=== PATIENT | female | born 1995 | race Hispanic/Latino ===

== ENCOUNTER 2016-11-19 13:25 | Inpatient (IN) | payer OTHER ==
[~2016-11-19] VITALS: Ht 157.5 cm; Wt 86.2 kg
[~2016-11-19 13:25] MED LIST: DOXY1TAB3 PO; OMEP20CA11 PO
[2016-11-19] MEDS ORDERED: Sodium Chloride LOK Flush 10 mL Syringe IVFLUSH PRN (14:05)
[2016-11-19] MEDS ORDERED: fentaNYL-PF 50 mCg/mL 2 mL Inj IVPUSH PRN (14:05)
[2016-11-19] MEDS ORDERED: Methylergonovine 0.2 mg/mL Inj IM PRN ×2 (14:05→22:15)
[2016-11-19] MEDS ORDERED: Hemorrhage Kit, Post Partum XX ONE ×2 (14:05→22:15)
[2016-11-19] MEDS ORDERED: Oxytocin 30 Units/500 mL LR 30 UNITS in IV Premix 1 EACH IV PRN ×2 (14:05→22:15)
[2016-11-19] MEDS ORDERED: Carboprost 250 mCg/mL Inj IM PRN ×2 (14:05→22:15)
[2016-11-19] MEDS ORDERED: Penicillin G K Inj 5,000,000 UNITS in Dextrose 5% Minibag Plus 100 ML IV ONE (14:05)
[2016-11-19] MEDS ORDERED: Oxytocin 10 Unit/mL Inj IM PRN ×2 (14:05→22:15)
[2016-11-19 14:43] LABS: Mean Corpuscular Hemoglobin 27.4 pg (27.0-35.0)
[2016-11-19] MEDS: Lactated Ringer's 1,000 ML IV PRN ×2 (15:16→16:09)
--- NOTE | 2016-11-19 15:50 | PCM.HPANE ---
Patient Data Date of Service: Nov 19, 2016 Surgeon Admitting Provider:Tabitha Martinez MD Attending Provider:Tabitha Martinez MD Primary Care Physician:Lesly Kaiser MD Other Provider:Cassy Samsingham Anesthesia Reason for Visit Term Early Labor TERM EARLY LABOR Ht/WT & BMI Body Mass Index Allergies Coded Allergies: No Known Allergies (Verified Allergy, Unknown, 10/07/15) Diabetes History Hx Diabetes?: No Medications Active Scripts Doxylamine/Pyridoxine 10-10 mg (Diclegis DR 10-10 mg)1 Each Tablet.dr1 Tablet PO QID PRN For Nausea #40 TABLET Prov:Ruddy Barker MD 03/30/16 Omeprazole 20 Mg Capsule.dr20 Mg PO BID #30 CAPSULE Ref 0 Prov:Lisa Tinsley DO 10/07/15 History Cardiovascular History: Denies:: Congestive Heart Failure Hypertension Respiratory History: Denies:: Tuberculosis Hx Surgeries?: Yes (C SECTION) Hx Diabetes: No Hx Alcohol Use: NoHx Substance Use: No Smoking Status: Never Smoker Have You Smoked inLast 12 mo: No Stop/Bang Risk Assessment Category Category 1A: Patient has history of documented sleep apnea, and HAS NOT received any narcotic, sedative or anesthesia administration during this stay. Category 1B: Patient has history of documented sleep apnea, and HAS received any narcotic , sedative or anesthesia administration during this stay Category 2: Patient has SUSPECTED Obstructive Sleep Apnea, and HAS received any narcotic , sedative or anesthesia administration during this stay. Category 3: Patient has SUSPECTED Obstructive Sleep Apnea and HAS NOT received narcotic, sedative or anesthesia administration during this stay. Category 4: Outpatient in Procedural Areas with known sleep apnea or who screen positive for High Risk via the STOP/BANG questionnaire. Exam Exam General Appearance: Alert, Oriented X3, Cooperative, Mild Distress HEENT/AIRWAY: MP 2, Neck Movement, Mouth Opening Lungs: Clear to Auscultation, Normal Air Movement Heart: Exam Unremarkable, Normal S1, Normal S2 Additional Information gravid abd Meds/Labs/Diagnostics Admission Meds Current Medications Penicillin G Potassium/ Dextrose/Water (Pfizerpen Inj/ D5W Minibag Plus) 100 ml @ 240 mls/hr ONCE ONCE IV Last administered on 11/19/16t 15:17; Start at 14:05; Stop 11/19/16 at 14:29; Status DC Labs Test 11/19/16 14:35 White Blood Count 10.7th/mm3 (3.8-10.1) Red Blood Count 4.01mil/mm3 (3.90-5.20) Hemoglobin 11.0g/dL (12.0-15.6) Hematocrit 33.7% (35.0-46.0) Mean Corpuscular Volume 84.0fL (81-100) Mean Corpuscular Hemoglobin 27.4pg (27.0-35.0) Mean Corpuscular Hemoglobin Concent 32.6% (32.0-37.0) Red Cell Distribution Width 14.1% (12.3-15.4) Platelet Count 200bil/L (150-400) Plan Impression Patient chart reviewed, patient interviewed and anesthestic plan with risks, benefits, and alternatives discussed, and informed consent obtained. ASA Physical Status: ASA2 Mod Systemic Disease Anesthetic Plan: Epidural Bene/Risks/Altern/Consents: Yes HP Complete Prior to Induction: Yes Irvin Davis DO Nov 19, 2016 15:50
[2016-11-19] MEDS ORDERED: fentaNYL 2 mCg/mL-Bupivicaine 0.125% 100 mL Premix EPIDURAL ONE (15:52)
--- NOTE | 2016-11-19 15:55 | PCM.HPOB ---
Subjective Date of Service: Nov 19, 2016 Referring Provider: Admitting Physician: Tabitha Martinez MD Primary Care Physician: Lesly Kaiser MD Attending Physician: Tabitha Martinez MD Chief Complaint Term labor, contractions, History of Present History of Present Illness Patient is a 21-year-old woman 001 presents to the [facility] at 38 weeks gestation with signs of labor, she was evaluated and found to be 6 cm dilated 90% effaced and station of -2. Her membranes had not ruptured. As a history of genital herpes, previously treated with valacyclovir, recently treated with acyclovir, otherwise history is unremarkable. O+ blood type Antibody screen was negative Varicella and rubella immune RPR and HIV nonreactive Hepatitis B surface antigen negative, hepatitis C negative GBS positive Chlamydia and gonorrhea negative Gestational diabetes screen negative Past Medical History Obstetrical History: Previous 42.2% calculated success. Gynecologic History: None. Medical History: None Surgical History: 1 previous at 16yo Social History: Lives with family Hx Tobacco Use: No Smoking Status: Never Smoker Hx Alcohol Use: No Hx Substance Use: No Past Family History Family History Uncle and Aunt have had CVAs MGM - Unknown type of cancer. Living Arrangement: with Family Review of Systems Constitutional: Y: Pain, Sweats, Weakness, Dizziness Eyes: Denies: Blurred Vision Cardiovascular: Denies: Chest Pain, Edema Respiratory: Denies: Cough Gastrointestinal: Reports: Nausea, Denies: Abdominal Pain Genitourinary: Denies: Dysuria Musculoskeletal: Denies: Redness, Swelling Skin/Breasts: Reports: Discharge Skin: Denies: Rash Neurological: Reports: Numbness (in her legs when she has contractions) Psychologic: Denies: Agitation Medications Home medications Acyclovir vitamin Allergy Coded Allergies: No Known Allergies (Verified Allergy, Unknown, 10/07/15) Exam Vital Signs 115/66 103 bpm 18 respirations per minute 98.8F 10 out of 10 pain Exam 130 bpm Baseline Moderate variability 15 x 15 accelerations no decelerations Type I strip Objective Sitting at bedside breathing through contractions Constitutional: Well-developed, Well-nourished, Normal habitus HEENT: Atraumatic, PERRLA, EOMI, Scleral Anicteric Lungs: Clear to Auscultation, Normal Air Movement Heart: Regular Rate/Rhythm, Normal S1, Normal S2, No Murmurs/Rubs/Gallops Abdomen: Gravid, No tenderness Lymphatic: Normal: Axilla Palpation of Nodes, Neck Palpation of Nodes Extremities: Pulses Palpable x4, No Edema Neuro: Grossly Neurologically Intact Labs/Diagnostics Labs Laboratory Tests 72 Hours Test 11/19/16 14:35 White Blood Count 10.7th/mm3 (3.8-10.1) Red Blood Count 4.01mil/mm3 (3.90-5.20) Hemoglobin 11.0g/dL (12.0-15.6) Hematocrit 33.7% (35.0-46.0) Mean Corpuscular Volume 84.0fL (81-100) Mean Corpuscular Hemoglobin 27.4pg (27.0-35.0) Mean Corpuscular Hemoglobin Concent 32.6% (32.0-37.0) Red Cell Distribution Width 14.1% (12.3-15.4) Platelet Count 200bil/L (150-400) Lab/Diagnostic Information 130 bpm Baseline Moderate variability 15 x 15 accelerations no decelerations Type I strip Maternal Blood Type: O Antibody Screen: negative Group B Strep Results: Positive Previous with GBS: No Rubella: Immune Lab History: Positive for: Hx Herpes, Negative for: Hx Chicken Pox, Hx Gonorrhea, Hx HIV, Hx Syphilis OB Intrapartum Assessment/Plan Assessment 21-year-old woman in active labor, at term with second child, history of C- section and genital herpes. Problems: (1) Term Status: Acute ICD Code: Z34.80 (2) History of herpes genitalis Status: Acute ICD Code: Z86.19 (3) Previous section Status: Acute ICD Code: Z98.89 Pain Management: Patient desires an epidural Pain Evaluation: Pain not Controlled Intrapartum plan Patient wishes to proceed with trial of labor after section, she was told the Loculated risk, confirms she wishes a trial of labor before proceeding with the . Penicillin G has been given, repeat every 4 hours until delivery. Attending Statement , history of previous c/section. Strongly desire ToLAC. Estimated successful rate 42%. Patient understood well. She still desire ToLAC. I discussed with her again today. She still desire ToLAC. Kory Wild DO Nov 19, 2016 15:55 Tabitha Martinez MD Nov 19, 2016 18:48
[2016-11-19] MEDS ORDERED: Lactated Ringer's 500 ML IV ONE (16:35)
[2016-11-19] MEDS ORDERED: fentaNYL 2 mCg/mL-Bupiv 0.125% 100 ML EPIDURAL SCH (16:35)
[2016-11-19] MEDS ORDERED: Ondansetron 2 mg/mL 2 mL Inj IVPUSH PRN (16:35)
[2016-11-19] MEDS ORDERED: EPHEDrine Sulfate 50 mg/mL Inj IVPUSH PRN (16:35)
[2016-11-19] MEDS ORDERED: Atropine 1 mg/10 mL (Code) Syringe IVPUSH PRN (16:35)
[2016-11-19] MEDS ORDERED: Lactated Ringer's 1,000 ML IV SCH ×2 (16:35→22:13)
--- NOTE | 2016-11-19 16:35 | PCM.ANEP1 ---
Post Anesthesia Phase 1 PACU Phase 1 Assessment Date of Service: Nov 19, 2016 Anesthetic Administered: Epidural Level of Alertness: Awake, talking MARIO's with Equal Strength: Yes (sensorimoltor block c/w epidural ) Pain: No Nausea or Vomiting: No Airway Device: Nasal Airway Oxygen Delivery: Room Air Lungs: Clear to Auscultation, Normal Air Movement Dermatome Level: Full Sensation (sensorimoltor block c/w epidural ) Irvin Davis DO Nov 19, 2016 16:34
[2016-11-19] MEDS ORDERED: Penicillin G K Inj 3,000,000 UNITS in IV Premix 1 EACH IV SCH (19:30)
[2016-11-19] MEDS ORDERED: Benzocaine (Dermoplast) 20% 60 Gm Spray TOPICAL PRN (22:15)
[2016-11-19] MEDS ORDERED: Witch Hazel-Glycerin Pads TOPICAL PRN (22:15)
[2016-11-19] MEDS ORDERED: Phytonadione (Neonate) 1 mg/0.5 mL Inj IM ONE (22:15)
[2016-11-19] MEDS ORDERED: LANOlin HPA 7 Gm Ointment TOPICAL PRN (22:15)
[2016-11-19] MEDS ORDERED: Erythromycin 0.5% 1 Gm Ophthalmic Ointment BOTH_EYES ONE (22:15)
[2016-11-19] MEDS ORDERED: Hepatitis-B (PED)(DSHS) 10 mCg/0.5 ML Vaccine IM ONE (22:15)
[2016-11-19] MEDS ORDERED: CeFAZolin Inj 2 GM in Dextrose 5% 50 ML IV ONE (22:25)
[2016-11-20] MEDS ORDERED: Sodium Chloride LOK Flush 10 mL Syringe IVFLUSH SCH (00:30)
--- NOTE | 2016-11-20 02:00 | OP ---
[address] [address] OPERATIVE REPORT PATIENT: CLIVE HILL : 1995 MR#: [id number] ADMIT: 11/19/2016 JOB ID: [id number] DATE OF SURGERY: 11/19/2016 SURGEON: Tabitha Martinez MD PREOPERATIVE DIAGNOSIS(ES): POSTOPERATIVE DIAGNOSIS(ES): DELIVERY NOTE: This is a 21-year-old female, 2 para 2 now. She is at 39 weeks. She presented to the [facility] this morning for contractions. She was noted to be 6 cm dilated at admission with intact membranes. The contractions were every 3-4 minutes. The heart tracing was category one. The patient has a history of previous section four years ago, and her successful rate for was about 42%. The patient strongly desired TOLAC, although she understood the successful rate is relatively low. After admission, the patient got one dose of fentanyl for pain management and she got epidural for pain control. Her labor pain was well controlled. The patient was GBS positive, and she got penicillin for coverage. AROM was performed around 6:15 and after that, she had much stronger contractions. The IUPC and FSE placed for multiple variable decels, but after changing position, the heart tracing went back to category 1 with early decels. The patient progressed to full dilation at around 8 o'clock, and was instructed to start to push. She had a good effort to push. There was a steady descent of head and with reassuring heart tracing. The infant delivered eventually at an FELICITAS position, and the shoulder and chest delivered without difficulty. The was placed to the mother's chest after delivery, and started to cry spontaneously. Cord clamped and cut after pulsation disappeared. Cord blood collected. While waiting for the placenta to deliver, there was a gush of fresh blood noticed, and at this time manual removal of the placenta was performed. The placenta was removed without difficulty completely. The uterus was well contracted after removal of placenta with massage and Pitocin. At this time, the perineum was examined, and noticed was a small vaginal sulcus tear about to 2.5 cm, shallow. There is no significant perineum laceration. The vaginal sulcus laceration was repaired with 2-0 Vicryl continuously. Hemostasis confirmed after the repair. The patient tolerated the delivery well. All instrument, needles, laps, and gauzes counted correct twice. The EBL during delivery was about 300 cc. The score was 9 and 9. The weight was not available at delivery.
--- NOTE | 2016-11-20 07:43 | PCM.PNOBPP ---
Subjective Date of Service Nov 20, 2016 Visit History Patient is a 21-year-old woman 001 presents to the [facility] at 38 weeks gestation with signs of labor, she was evaluated and found to be 6 cm dilated 90% effaced and station of -2. Her membranes had not ruptured. As a history of genital herpes, previously treated with valacyclovir, recently treated with acyclovir, otherwise history is unremarkable. O+ blood type Antibody screen was negative Varicella and rubella immune RPR and HIV nonreactive Hepatitis B surface antigen negative, hepatitis C negative GBS positive Chlamydia and gonorrhea negative Gestational diabetes screen negative Received penicillin every 4 hours intrapartum. Patient proceeded to have a normal spontaneous vaginal delivery. Liveborn female Delivered 2147 on 11/19/2016 3741 g Apgars 8 and 9 First-degree perineal laceration Subjective States she is doing well, she is independently ambulating around room, able to urinate, she states she has some shortness of breath when getting out of bed, but no lightheadedness or dizziness. She has been able to breast-feed overnight and states she has been given a lot of thought to the minipill for control. Lochia: Normal (for non-saturated pads) Pain Management: PO pain meds (600 mg ibuprofen by mouth) Gastrointestinal: Good Appetite, No N/V, Other (no bowel movements or flatus) Postop Activity: Ambulating Independently, Ambulate without Assist Labs O+ blood type Antibody screen was negative Varicella and rubella immune RPR and HIV nonreactive Hepatitis B surface antigen negative, hepatitis C negative GBS positive Chlamydia and gonorrhea negative Gestational diabetes screen negative Group B Strep Results: Positive Rubella: Immune Blood Type: O RH Type: Positive Labs Laboratory Tests 11/19/16 14:35: White Blood Count 10.7, Red Blood Count 4.01, Hemoglobin 11.0, Hematocrit 33.7, Mean Corpuscular Volume 84.0, Mean Corpuscular Hemoglobin 27.4, Mean Corpuscular Hemoglobin Concent 32.6, Red Cell Distribution Width 14.1, Platelet Count 200 Exam Vital Signs Vital Signs 109/41 mmHg 82 bpm Vital Signs: VS reviewed, stable Exam Abdomen: Fundus firm (3 fingerbreadths below umbilicus) : Voiding without difficulty Extremities: No cords, Normal pulses, No tenderness/swelling Lungs: Clear to Auscultation Heart: Regular Rate/Rhythm, Normal S1, Normal S2, No Murmurs/Rubs/Gallops General: Alert, Oriented X3, Cooperative, No Acute Distress OB Post Assessment/Plan Assessment 21-year-old woman status post . Recovering well. Problems: (1) Term Status: Acute ICD Code: Z34.80 (2) History of herpes genitalis Status: Acute ICD Code: Z86.19 (3) Previous section Status: Acute ICD Code: Z98.89 Pain Management: Patient has declined pain intervention. Pain Evaluation: Adequate Pain Control Post plan: Continue routine post care Plan: The need to encourage ambulation Continue with breast-feeding Kory Wild DO Nov 20, 2016 06:36
[2016-11-20 08:49] LABS: Mean Corpuscular Hemoglobin 27.2 pg (27.0-35.0); Mean Corpuscular Volume 84.9 fL (81-100)
--- NOTE | 2016-11-20 13:28 | PCM.DIMED ---
Discharge Instructions Date of Service Nov 20, 2016 Dates of Hospitalization Nov 19, 2016 at 13:53 Discharge Diagnosis Discharge Diagnosis Vaginal after Spontaneous rupture of membranes Normal spontaneous vaginal term Medication Instructions Vicodin 5/325 mg, take 1 tab q4-6h PO PRN for pain, #20 Colace 100 mg BID PO PRN for constipation #80 Ferrous sulfate 325 mg PO daily, #90 Vitamin C 1000 mg PO daily, #60. Take with iron Ibuprofen 600mg, take 1 tab q8h PO PRN for pain #30 Diet No restrictions Activity Other (pelvic rest for 6 weeks. Avoid heavy lifting greater than 15 pounds for 2 weeks) Patient Instructions Continue your vitamin. Please take the iron and vitamin c together for your anemia. Do not take more pain medication Vicodin than is necessary -- less is better. Vicodin pills have Tylenol (acetaminophen) in them at 325mg per pill. Do not take Tylenol in addition to your pain medication but should take one or the other. Both iron and Vicodin can give you constipation so you have also been given a prescription for docusate to keep you regular. Be sure to follow up in 2 weeks and then again in 6 weeks at [facility]. ( Follow up for without complications is 6 weeks) Pelvic rest for 6 weeks (nothing per vagina including intercourse, tampons) If you have a fever greater than 100.4, please call [facility]. There is always someone concession worker to talk to. If you have an increase in bleeding, call [facility]. If you have a lot of bleeding suddenly, especially if you have symptoms of dizziness & weakness with it, get emergency help. When you see [facility] in two weeks, you will be informed of the results of all the labs. If you start experiencing extreme depression, especially if you feel that you are a danger to yourself or your family, seek emergency help. You have been through a lot -- BE SURE TO TAKE CARE OF YOURSELF. Follow-up plan Follow-up in 6 weeks at [facility] Follow-up with PCP in: 6 weeks Kory Wild DO Nov 20, 2016 13:13
[2016-11-20] MEDS ORDERED: FERR-83 PO (13:34)
[2016-11-20] MEDS ORDERED: ASCO100089 PO (13:34)
[2016-11-20] MEDS ORDERED: IBUP-1827 PO (13:34)
[2016-11-20] MEDS ORDERED: DOCU-41 PO (13:34)
[2016-11-20] MEDS ORDERED: HYDR-4003 PO (13:34)
[2016-11-20 13:45] VITALS: BP 105/72; PULSE 76; RESP 16
--- NOTE | 2016-11-20 13:47 | PCM.DC.OB ---
Obstetrical Discharge Summary Date of Service Nov 20, 2016 Date of hospital admission Nov 19, 2016 at 13:53 Date of Discharge: Nov 20, 2016 Providers Admitting Physician: Tabitha Martinez MD Primary Care Physician: Lesly Kaiser MD Attending Physician: Tabitha Martinez MD Problems: (1) Term Status: Acute ICD Code: Z34.80 (2) History of herpes genitalis Status: Acute ICD Code: Z86.19 (3) Previous section Status: Acute ICD Code: Z98.89 Brief History and Physical: Patient is a 21-year-old woman now 002 presented to the [facility] at 38 weeks gestation with signs of labor, she was evaluated and found to be 6 cm dilated 90% effaced and station of -2. Her membranes had not ruptured. Has a history of genital herpes, previously treated with valacyclovir , recently treated with acyclovir, otherwise history is unremarkable. O+ blood type Antibody screen was negative Varicella and rubella immune RPR and HIV nonreactive Hepatitis B surface antigen negative, hepatitis C negative GBS positive Chlamydia and gonorrhea negative Gestational diabetes screen negative Physical exam on day of discharge Vital Signs Vital Signs 109/41 mmHg 82 bpm Vital Signs: VS reviewed, stable Exam Abdomen: Fundus firm (3 fingerbreadths below umbilicus), appropriately tender. : Voiding without difficulty Extremities: No cords, Normal pulses, No tenderness/swelling Lungs: Clear to Auscultation Heart: Regular Rate/Rhythm, Normal S1, Normal S2, No Murmurs/Rubs/Gallops General: Alert, Oriented X3, Cooperative, No Acute Distress Hospital Course: Received penicillin every 4 hours intrapartum. Patient proceeded to have a normal spontaneous vaginal delivery. Liveborn female Delivered 2147 on 11/19/2016 3741 g Apgars 8 and 9 First-degree perineal laceration Ascorbic Acid (Vitamin C) 1,000 Mg Tab.chew 1,000 MG PO DAILY Prescribed by: KORY SOLIS DO Docusate Sodium (Colace) 100 Mg Capsule 100 MG PO DAILY Prescribed by: KORY SOLIS DO Doxylamine/Pyridoxine 10-10 mg (Diclegis DR 10-10 mg) 1 Each Tablet. 1 TABLET PO QID PRN PRN For Nausea Prescribed by: ISIDRA VALDERRAMA MD Ferrous Sulfate (Ferrous Sulfate) 325 Mg Tablet 325 MG PO DAILY Prescribed by: KORY SOLIS, Hydrocodone-Acetaminophen 5-325 mg (Hydrocodone-Acetaminophen 5-325 mg) 1 Each Tablet 1 TABLET PO Q4H PRN PRN For Pain Prescribed by: KORY SOLIS DO Ibuprofen (Ibuprofen) 600 Mg Tablet 600 MG PO Q6H PRN PRN For Mild Pain Prescribed by: KORY SOLIS DO Omeprazole (Omeprazole) 20 Mg Capsule.dr 20 MG PO BID Prescribed by: FREDDY MUNIZ, Discharge Medications: Vicodin 5/325 mg, take 1 tab q4-6h PO PRN for pain, #20 Colace 100 mg BID PO PRN for constipation #80 Ferrous sulfate 325 mg PO daily, #90 Vitamin C 1000 mg PO daily, #60. Take with iron Ibuprofen 600mg, take 1 tab q8h PO PRN for pain Disposition Successful , discharge home. Ambulating independently Follow-up plan Following up in 6 weeks with [facility] [place] [facility] Discharge Diet: No restrictions Discharge Activity-General: Pelvic Rest for 6 weeks, No lifting >15 pounds for 2 weeks Patient instructions Continue your vitamin. Please take the iron and vitamin c together for your anemia. Do not take more pain medication Vicodin than is necessary -- less is better. Vicodin pills have Tylenol (acetaminophen) in them at 325mg per pill. Do not take Tylenol in addition to your pain medication but should take one or the other. Both iron and Vicodin can give you constipation so you have also been given a prescription for docusate to keep you regular. Be sure to follow up in 2 weeks and then again in 6 weeks at [facility]. ( Follow up for without complications is 6 weeks) Pelvic rest for 6 weeks (nothing per vagina including intercourse, tampons) If you have a fever greater than 100.4, please call Women[facility]. There is always someone hand expansion envelope maker to talk to. If you have an increase in bleeding, call Women[facility]. If you have a lot of bleeding suddenly, especially if you have symptoms of dizziness & weakness with it, get emergency help. When you see [facility] in two weeks, you will be informed of the results of all the labs. If you start experiencing extreme depression, especially if you feel that you are a danger to yourself or your family, seek emergency help. You have been through a lot -- BE SURE TO TAKE CARE OF YOURSELF. Attending Statement: Patient seen and examined this AM. She is doing well today PPD#1 s/p . Labs and vital signs are reviewed and are within normal limits. Pain is well controlled, lochia is minimal. She can discontinue her HSV prophylaxis s/p delivery, plan to discharge home today. Discharge instructions and precautions reviewed with the patient. Recommend follow up in 6 weeks for a routine visit. Kory Wild DO Nov 20, 2016 13:47 Laly Fox MD Nov 20, 2016 15:21
[2016-11-20] MEDS ORDERED: HYDROcodone-APAP 5-325 mg Tablet PO PRN (14:15)
== END 2016-11-20 14:15 | disposition home or self-care (01) | DRG 560 ==
LOC: FBCO 13:25 → FBC 13:53
PROVIDERS: ADMIT Obstetrics & Gynecology; ATTEND Obstetrics & Gynecology
PROC: 10E0XZZ Delivery of Products of Conception, External Approach (ICD-10-PCS; principal; 2016-11-19)
PROC: 0HQ9XZZ Repair Perineum Skin, External Approach (ICD-10-PCS; 2016-11-19)
PROC: 10907ZC Drainage of Amniotic Fluid, Therapeutic from Products of Conception, Via Natural or Artificial Opening (ICD-10-PCS; 2016-11-19)
PROC: 10H07YZ Insertion of Other Device into Products of Conception, Via Natural or Artificial Opening (ICD-10-PCS; 2016-11-19)
DX: O70.0 First degree perineal laceration during delivery (principal); O99.824 Streptococcus B carrier state complicating childbirth; O76 Abnormality in fetal heart rate and rhythm complicating labor and delivery; Z3A.39 39 weeks gestation of pregnancy; Z37.0 Single live birth; Z98.891 History of uterine scar from previous surgery; Z86.19 Personal history of other infectious and parasitic diseases